=== PATIENT | male | born 1990 | race Caucasian/White ===

== ENCOUNTER 2017-12-04 12:12 | Emergency (ER) | payer OTHER ==
[~2017-12-04] VITALS: Ht 180.3 cm; Wt 72.6 kg
[~2017-12-04 12:12] MED LIST: ALBU90I INH; ALBU90OI6 INH; ALPR.25 PO; ALPR.5 PO; AMOX500 PO; AMPDEX10 PO; ATEN25 PO; Advil200 M1 PO; Ativan1 MG PO; BENZ100A PO; BUSP10; BUSP10 PO; Bactrim 400-801 EACH; Bactrim Ds Tab1 EACH PO; CLON.2 PO; CLON.5; CLON1 PO; CODACE30 PO; CRUTCH3 USE; CRUTCH4 USE; CYCL10 PO; Colace100 MG PO; DIPH25 PO; DIPH50 PO; DIVA500EC PO; ESCI10; FAMO40 PO; GABA300 PO; GUAI600ER PO; HYDACE5 PO; HYDPAM25 PO; HYDR1TAB94; HYDR1TAB94 PO; HYDRA25 PO; IBUP400 PO; IBUP600 PO; IBUP800 PO; INDERAL XL80 MG PO; INDO25 PO; INDO50 PO; Inderal80 MG PO; KETO10 PO; LITH300C PO; LITH300ER PO; LORA1 PO; LORA2; LORA2 PO; MAGCIT300 PO; NAPR500; NAPR500 PO; NAPR550 PO; Naprosyn500 MG PO; Norco 5-325 Ta1 EACH PO; OMEPRAZOLE MAGN20 MG PO; OXYACE5T PO; OXYC5; OXYC5 PO; PANT40 PO; PARO20 PO; PENVK500 PO; PERM5TC TOP; POTCHL20ER PO; PRED20 PO; PROC10 PO; PROM25 PO; PROP10 PO; PROP80ER PO; PSEU120ER PO; Pepcid40 MG PO; RANI150 PO; RISP2 PO; RXCYCL10 PO; RXHYDACE PO; RXIBUP800 PO; RXLORA1 PO; RXNAPNA550 PO; RXTRAM50 PO; SUCR1 PO; TEMA15 PO; TOBR.3OPSO OP; TRAM50 PO; TRAZ50 PO; Ultram50 MG PO; VICODIN; Vistaril25 MG PO; [UNRECOGNIZED DRUG - REMARK]; [UNRECOGNIZED DRUG - REMARK] PO
[2017-12-04] MEDS ORDERED: Amoxicillin500 MG PO (12:46)
[2017-12-04] MEDS ORDERED: PROM25 PO (12:46)
[2017-12-04] MEDS ORDERED: TYLECOD3 PO (12:46)
[2018-03-30] MEDS ORDERED: SUBOXONE 8 MG-1 EACH (21:06)
[2018-03-30] MEDS ORDERED: HYDHCL25 (21:07)
[2018-03-30] MEDS ORDERED: PROM25 (21:07)
[2018-03-30] MEDS ORDERED: CLON.1 (21:08)
[2018-03-30] MEDS ORDERED: Desyrel50 MG (21:08)
[2018-04-17] MEDS ORDERED: OXYM.05NI (22:50)
[2018-04-17] MEDS ORDERED: IBUP600 PO (22:50)
[2018-10-05] MEDS ORDERED: Inderal80 MG PO (20:56)
[2018-10-05] MEDS ORDERED: Naprosyn500 MG PO (21:31)
[2018-10-05] MEDS ORDERED: LIDO700A20 TOP (21:31)
== END 2017-12-04 12:50 | disposition home or self-care (01) ==
LOC: ER 12:12
DX: G89.18 Other acute postprocedural pain (principal); K08.89 Other specified disorders of teeth and supporting structures; F31.9 Bipolar disorder, unspecified; Z88.6 Allergy status to analgesic agent; Z79.899 Other long term (current) drug therapy; Z79.2 Long term (current) use of antibiotics; Z87.891 Personal history of nicotine dependence
CPT/HCPCS: 99283

== ENCOUNTER 2017-12-31 12:36 | Emergency (ER) | payer OTHER ==
[~2017-12-31] VITALS: Ht 177.8 cm; Wt 74.8 kg
[~2017-12-31 12:36] MED LIST changes: +Amoxicillin500 MG PO; +TYLECOD3 PO
[2017-12-31 13:20] LABS: BASOPHILS ABSOLUTE AUTO 0.04 K/mm3 (0.00-0.23); BASOPHILS PERCENT AUTO 1 % (0-2); EOSINOPHILS ABSOLUTE AUTO 0.16 K/mm3 (0.00-0.68); EOSINOPHILS PERCENT AUTO 3 % (0-6); Hematocrit 46.1 % (37.0-53.0); Hemoglobin 15.9 g/dL (13.5-17.5); IMMATURE GRAN ABSOLUTE AUTO 0.01 K/mm3 (0.00-0.10); IMMATURE GRAN PERCENT AUTO 0 % (0-1); LYMPHOCYTES ABSOLUTE AUTO 2.39 K/mm3 (0.84-5.20); LYMPHOCYTES PERCENT AUTO 44 % (21-46); MONOCYTES ABSOLUTE AUTO 0.47 K/mm3 (0.16-1.47); MONOCYTES PERCENT AUTO 9 % (4-13); Mean Corpuscular HGB 31.9 pg (26.0-34.0); Mean Corpuscular HGB Conc 34.5 g/dL (31.5-36.5); Mean Corpuscular Volume 92 fL (80-100); Mean Platelet Volume 10.2 fL (9.1-12.4); NEUTROPHILS PERCENT AUTO 44 % (41-73); Platelet Count 261 K/mm3 (150-400); RDW Coefficient Variation 13.1 % (11.7-14.2); RDW Standard Deviation 44.6 fL (35.1-46.3); Red Blood Cell Count 4.99 M/mm3 (4.30-5.90); White Blood Cell Count 5.47 K/mm3 (4.00-11.30)
[2018-03-30] MEDS ORDERED: SUBOXONE 8 MG-1 EACH (21:06)
[2018-03-30] MEDS ORDERED: HYDHCL25 (21:07)
[2018-03-30] MEDS ORDERED: PROM25 (21:07)
[2018-03-30] MEDS ORDERED: Desyrel50 MG (21:08)
[2018-03-30] MEDS ORDERED: CLON.1 (21:08)
[2018-04-17] MEDS ORDERED: OXYM.05NI (22:50)
[2018-04-17] MEDS ORDERED: IBUP600 PO (22:50)
[2018-10-05] MEDS ORDERED: Inderal80 MG PO (20:56)
[2018-10-05] MEDS ORDERED: Naprosyn500 MG PO (21:31)
[2018-10-05] MEDS ORDERED: LIDO700A20 TOP (21:31)
== END 2017-12-31 14:05 | disposition home or self-care (01) ==
LOC: ER 12:36
PROVIDERS: Emergency Medicine
DX: R07.9 Chest pain, unspecified (principal); F31.9 Bipolar disorder, unspecified; F41.9 Anxiety disorder, unspecified
CPT/HCPCS: 71046; 84484; 85025; 93005; 93010; 99283

== ENCOUNTER 2018-01-19 21:24 | Emergency (ER) | payer OTHER ==
[~2018-01-19] VITALS: Ht 177.8 cm; Wt 75.8 kg
[2018-01-19] MEDS ORDERED: Vistaril25 MG PO (23:44)
[2018-01-20 00:55] LABS: Valproic Acid 41.7 ug/mL (50.0-100.0)
[2018-03-30] MEDS ORDERED: SUBOXONE 8 MG-1 EACH (21:06)
[2018-03-30] MEDS ORDERED: HYDHCL25 (21:07)
[2018-03-30] MEDS ORDERED: PROM25 (21:07)
[2018-03-30] MEDS ORDERED: CLON.1 (21:08)
[2018-03-30] MEDS ORDERED: Desyrel50 MG (21:08)
[2018-04-17] MEDS ORDERED: OXYM.05NI (22:50)
[2018-04-17] MEDS ORDERED: IBUP600 PO (22:50)
[2018-10-05] MEDS ORDERED: Inderal80 MG PO (20:56)
[2018-10-05] MEDS ORDERED: Naprosyn500 MG PO (21:31)
[2018-10-05] MEDS ORDERED: LIDO700A20 TOP (21:31)
== END 2018-01-20 00:35 | disposition home or self-care (01) ==
LOC: ER 21:24
PROVIDERS: Emergency Medicine
DX: F31.9 Bipolar disorder, unspecified (principal); F41.9 Anxiety disorder, unspecified; Z87.891 Personal history of nicotine dependence; Z88.8 Allergy status to other drugs, medicaments and biological substances; Z79.899 Other long term (current) drug therapy
CPT/HCPCS: 80164; 99283; Q0177

== ENCOUNTER 2018-03-06 18:38 | Emergency (ER) | payer OTHER ==
[~2018-03-06] VITALS: Ht 177.8 cm; Wt 74.8 kg
[2018-03-06] MEDS ORDERED: DIVA500EC PO (20:45)
== END 2018-03-06 20:50 | disposition home or self-care (01) ==
LOC: ER 18:38
DX: Z76.0 Encounter for issue of repeat prescription (principal); F31.9 Bipolar disorder, unspecified; F41.9 Anxiety disorder, unspecified; Z88.8 Allergy status to other drugs, medicaments and biological substances; Z79.899 Other long term (current) drug therapy; Z87.891 Personal history of nicotine dependence
CPT/HCPCS: 99283

== ENCOUNTER 2018-03-20 16:03 | Emergency (ER) | payer OTHER ==
[~2018-03-20] VITALS: Ht 177.8 cm; Wt 74.8 kg
[2018-03-20] MEDS ORDERED: Augmentin 875-1 EACH PO (16:56)
== END 2018-03-20 17:10 | disposition home or self-care (01) ==
LOC: ER 16:03
DX: S81.851A Open bite, right lower leg, initial encounter (principal); W54.0XXA Bitten by dog, initial encounter; Z88.8 Allergy status to other drugs, medicaments and biological substances; Z79.899 Other long term (current) drug therapy; Z79.2 Long term (current) use of antibiotics; F41.9 Anxiety disorder, unspecified; F31.9 Bipolar disorder, unspecified; F43.10 Post-traumatic stress disorder, unspecified; Z87.891 Personal history of nicotine dependence
CPT/HCPCS: 90471; 90714; 99282

== ENCOUNTER 2018-04-02 13:00 | Emergency (ER) | payer OTHER ==
[~2018-04-02] VITALS: Ht 177.8 cm; Wt 74.8 kg
[~2018-04-02 13:00] MED LIST changes: +Augmentin 875-1 EACH PO; +CLON.1; +Desyrel50 MG; +HYDHCL25; +PROM25; +SUBOXONE 8 MG-1 EACH
== END 2018-04-02 14:24 ==
LOC: ER 13:00
DX: R07.89 Other chest pain (principal); R06.00 Dyspnea, unspecified; T40.4X5A Adverse effect of other synthetic narcotics, initial encounter; F11.23 Opioid dependence with withdrawal; F41.9 Anxiety disorder, unspecified; F31.9 Bipolar disorder, unspecified; Z88.8 Allergy status to other drugs, medicaments and biological substances; Z79.899 Other long term (current) drug therapy; Z87.891 Personal history of nicotine dependence

== ENCOUNTER 2018-04-06 14:43 | Emergency (ER) | payer OTHER ==
[~2018-04-06] VITALS: Ht 177.8 cm; Wt 74.8 kg
[2018-04-06] MEDS ORDERED: METH10 PO (15:04)
== END 2018-04-06 16:42 | disposition home or self-care (01) ==
LOC: ER 14:43
DX: F11.988 Opioid use, unspecified with other opioid-induced disorder (principal); F31.9 Bipolar disorder, unspecified; Z87.891 Personal history of nicotine dependence; Z88.8 Allergy status to other drugs, medicaments and biological substances; Z79.899 Other long term (current) drug therapy
CPT/HCPCS: 99283

== ENCOUNTER 2018-04-17 20:20 | Emergency (ER) | END 2018-04-17 23:25 | disposition home or self-care (01) ==

== ENCOUNTER 2019-01-06 00:31 | Emergency (ER) | payer OTHER ==
[~2019-01-06] VITALS: Ht 177.8 cm; Wt 77.1 kg
[~2019-01-06 00:31] MED LIST changes: +LIDO700A20 TOP; +METH10 PO; +OXYM.05NI
[2019-01-06 01:55] LABS: Alanine Aminotransfer (ALT/SGP 36 U/L (12-78); Albumin, Blood 4.2 g/dL (3.4-5.0); Albumin/Globulin Ratio 1.2 (0.8-1.8); Alk Phos 56 U/L (50-136); Anion Gap 6 mmol/L (6-16); Aspartate Aminotrans (AST/SGOT 28 U/L (12-37); Bilirubin, Total 0.3 mg/dL (0.1-1.0); Blood Urea Nitrogen 12 mg/dL (8-24); Bun/Creatinine Ratio 12.6 (12.0-20.0); CO2, Blood 30 mmol/L (21-32); Calcium, Blood 9.1 mg/dL (8.5-10.1); Chloride, Blood 106 mmol/L (98-108); Creatinine, Blood 0.96 mg/dL (0.60-1.20); Globulin, Blood 3.6 g/dL (2.2-4.0); Glomerular Filtration Rate >60 (60-); Glucose, Blood 90 mg/dL (70-99); Potassium, Blood 4.6 mmol/L (3.5-5.5); Sodium, Blood 142 mmol/L (136-145); Total Protein, Blood 7.8 g/dL (6.4-8.2)
[2019-01-06 01:57] LABS: BASOPHILS ABSOLUTE AUTO 0.05 K/mm3 (0.00-0.23); BASOPHILS PERCENT AUTO 1 % (0-2); EOSINOPHILS ABSOLUTE AUTO 0.35 K/mm3 (0.00-0.68); EOSINOPHILS PERCENT AUTO 5 % (0-6); Hematocrit 43.4 % (37.0-53.0); Hemoglobin 15.1 g/dL (13.5-17.5); IMMATURE GRAN ABSOLUTE AUTO 0.02 K/mm3 (0.00-0.10); IMMATURE GRAN PERCENT AUTO 0 % (0-1); LYMPHOCYTES ABSOLUTE AUTO 3.05 K/mm3 (0.84-5.20); LYMPHOCYTES PERCENT AUTO 44 % (21-46); MONOCYTES ABSOLUTE AUTO 0.66 K/mm3 (0.16-1.47); MONOCYTES PERCENT AUTO 10 % (4-13); Mean Corpuscular HGB 31.6 pg (26.0-34.0); Mean Corpuscular HGB Conc 34.8 g/dL (31.5-36.5); Mean Corpuscular Volume 91 fL (80-100); Mean Platelet Volume 10.7 fL (9.1-12.4); NEUTROPHILS ABSOLUTE AUTO 2.82 K/mm3 (1.96-9.15); NEUTROPHILS PERCENT AUTO 41 % (41-73); Platelet Count 242 K/mm3 (150-400); RDW Coefficient Variation 12.7 % (11.7-14.2); Red Blood Cell Count 4.78 M/mm3 (4.30-5.90); White Blood Cell Count 6.95 K/mm3 (4.00-11.30)
== END 2019-01-06 02:20 | disposition home or self-care (01) ==
LOC: ER 00:31
PROVIDERS: Emergency Medicine
DX: K29.70 Gastritis, unspecified, without bleeding (principal); Z88.8 Allergy status to other drugs, medicaments and biological substances; Z79.899 Other long term (current) drug therapy; F41.9 Anxiety disorder, unspecified; F31.9 Bipolar disorder, unspecified; F43.10 Post-traumatic stress disorder, unspecified; Z87.891 Personal history of nicotine dependence
CPT/HCPCS: 36415; 80053; 83690; 85025; 99283

== ENCOUNTER 2019-01-25 21:20 | Emergency (ER) | payer OTHER | END 2019-01-25 23:04 | disposition left against medical advice (07) | LOC: ER 21:20 | DX: Z53.21 Procedure and treatment not carried out due to patient leaving prior to being seen by health care provider (principal) ==

== ENCOUNTER 2019-03-11 18:29 | Emergency (ER) | payer OTHER ==
[~2019-03-11] VITALS: Ht 177.8 cm; Wt 74.8 kg
[2019-03-11 19:21] LABS: BASOPHILS ABSOLUTE AUTO 0.03 K/mm3 (0.00-0.23); BASOPHILS PERCENT AUTO 0 % (0-2); EOSINOPHILS ABSOLUTE AUTO 0.29 K/mm3 (0.00-0.68); EOSINOPHILS PERCENT AUTO 4 % (0-6); Hematocrit 43.7 % (37.0-53.0); Hemoglobin 15.1 g/dL (13.5-17.5); IMMATURE GRAN ABSOLUTE AUTO 0.02 K/mm3 (0.00-0.10); IMMATURE GRAN PERCENT AUTO 0 % (0-1); LYMPHOCYTES ABSOLUTE AUTO 3.33 K/mm3 (0.84-5.20); LYMPHOCYTES PERCENT AUTO 47 % (21-46); MONOCYTES ABSOLUTE AUTO 0.72 K/mm3 (0.16-1.47); MONOCYTES PERCENT AUTO 10 % (4-13); Mean Corpuscular HGB 31.9 pg (26.0-34.0); Mean Corpuscular HGB Conc 34.6 g/dL (31.5-36.5); Mean Corpuscular Volume 92 fL (80-100); Mean Platelet Volume 10.6 fL (9.1-12.4); NEUTROPHILS ABSOLUTE AUTO 2.69 K/mm3 (1.96-9.15); NEUTROPHILS PERCENT AUTO 38 % (41-73); Platelet Count 231 K/mm3 (150-400); RDW Coefficient Variation 13.1 % (11.7-14.2); RDW Standard Deviation 44.4 fL (35.1-46.3); Red Blood Cell Count 4.74 M/mm3 (4.30-5.90); White Blood Cell Count 7.08 K/mm3 (4.00-11.30)
[2019-03-11] MEDS ORDERED: Zantac150 MG PO (19:39)
[2019-03-11 19:42] LABS: Alanine Aminotransfer (ALT/SGP 51 U/L (12-78); Albumin, Blood 4.2 g/dL (3.4-5.0); Albumin/Globulin Ratio 1.1 (0.8-1.8); Alk Phos 59 U/L (50-136); Anion Gap 3 mmol/L (6-16); Aspartate Aminotrans (AST/SGOT 30 U/L (12-37); Bilirubin, Total 0.4 mg/dL (0.1-1.0); Blood Urea Nitrogen 14 mg/dL (8-24); Bun/Creatinine Ratio 13.6 (12.0-20.0); CO2, Blood 31 mmol/L (21-32); Calcium, Blood 8.9 mg/dL (8.5-10.1); Chloride, Blood 106 mmol/L (98-108); Creatinine, Blood 1.03 mg/dL (0.60-1.20); Globulin, Blood 3.7 g/dL (2.2-4.0); Glomerular Filtration Rate >60 (60-); Glucose, Blood 91 mg/dL (70-99); Potassium, Blood 4.1 mmol/L (3.5-5.5); Sodium, Blood 140 mmol/L (136-145); Total Protein, Blood 7.9 g/dL (6.4-8.2)
== END 2019-03-11 19:53 | disposition home or self-care (01) ==
LOC: ER 18:29
PROVIDERS: Physician Assistant
DX: K29.70 Gastritis, unspecified, without bleeding (principal); F32.9 Major depressive disorder, single episode, unspecified; F41.9 Anxiety disorder, unspecified; F31.9 Bipolar disorder, unspecified; Z79.899 Other long term (current) drug therapy
CPT/HCPCS: 36415; 80053; 82272; 85025; 99283

== ENCOUNTER 2019-03-19 23:39 | Emergency (ER) | payer OTHER ==
[~2019-03-19] VITALS: Ht 177.8 cm; Wt 74.8 kg
[~2019-03-19 23:39] MED LIST changes: +Zantac150 MG PO
[2019-03-20] MEDS ORDERED: DIVA500EC PO (00:04)
== END 2019-03-20 00:16 | disposition home or self-care (01) ==
LOC: ER 23:39
DX: Z76.0 Encounter for issue of repeat prescription (principal); F31.9 Bipolar disorder, unspecified; F43.10 Post-traumatic stress disorder, unspecified; I47.1 Supraventricular tachycardia; F41.0 Panic disorder [episodic paroxysmal anxiety]; Z88.8 Allergy status to other drugs, medicaments and biological substances
CPT/HCPCS: 99281

== ENCOUNTER 2019-04-14 22:29 | Emergency (ER) | payer OTHER ==
[~2019-04-14] VITALS: Ht 177.8 cm; Wt 72.6 kg
[2019-04-14 22:43] LABS: Source, Urine Clean Catch
[2019-04-14 22:48] LABS: Blood, Urine 1+ (Neg); Glucose Qualitative, Urine Neg (Neg); Ketones, Urine 2+ (Neg); Leukocyte Esterase, Urine 3+ (Neg); Nitrite, Urine Neg (Neg); Protein, Urine 2+ (Neg); Urobilinogen, Urine 2+ (Normal); pH, Urine 6.5 (5.0-8.0)
[2019-04-14 22:57] LABS: Appearance, Urine Hazy (Clear); Bilirubin, Urine 1+ (Neg); Color, Urine Yellow (P-Yellow)
[2019-04-14 22:58] LABS: Amorphous Light (0-Heavy); Bacteria Few /hpf; Mucus Mod (0-Heavy); Red Blood Cells, Urine 0-2 /hpf (0-2); Squamous Epithelial Cells Not Seen /hpf (Few); White Blood Cells, Urine TNTC /hpf (0-5)
[2019-04-14] MEDS ORDERED: CEPH500 PO (23:26)
[2019-04-14] MEDS ORDERED: Pyridium100 MG PO (23:26)
== END 2019-04-14 23:44 | disposition home or self-care (01) ==
LOC: ER 22:29
PROVIDERS: Emergency Medicine
DX: N39.0 Urinary tract infection, site not specified (principal); Z88.8 Allergy status to other drugs, medicaments and biological substances; Z79.899 Other long term (current) drug therapy; F31.9 Bipolar disorder, unspecified; F43.10 Post-traumatic stress disorder, unspecified; Z87.891 Personal history of nicotine dependence
CPT/HCPCS: 81001; 87086; 99283

== ENCOUNTER 2019-06-24 10:56 | Day surgery (SDC) | payer OTHER ==
[~2019-06-24] VITALS: Ht 177.8 cm; Wt 72.2 kg
[~2019-06-24 10:56] MED LIST changes: +CEPH500 PO; +Pyridium100 MG PO
--- NOTE | 2019-06-24 13:48 | NUR ---
06/24/19 5201 Libby Andrade PT STATED PAIN WAS TOLERABLE AND "FEELING MUCH BETTER." PT STATED HE WANTED TO GO HOME. RN WENT OVER DISCHARGE INSTRUCTIONS WITH PT AND PT'S FAMILY. PT DRESSED INDEPENDANTLY. PT WALKED OUT TO MOM'S CAR VIA STAND BY ASSIST. PT SENT HOME WITH DISCHARGE INSTRUCTIONS AND PERSONAL BELONGINGS.
== END 2019-06-24 13:45 | disposition home or self-care (01) ==
LOC: ORSCSDS 10:56
PROVIDERS: Internal Medicine Gastroenterology
PROC: 0DB68ZX Excision of Stomach, Via Natural or Artificial Opening Endoscopic, Diagnostic (ICD-10-PCS; principal; 2019-06-24 12:30)
PROC: 0DBE8ZX Excision of Large Intestine, Via Natural or Artificial Opening Endoscopic, Diagnostic (ICD-10-PCS; principal; 2019-06-24 12:30)
PROC: 0DB98ZX Excision of Duodenum, Via Natural or Artificial Opening Endoscopic, Diagnostic (ICD-10-PCS; principal; 2019-06-24 12:30)
DX: K62.5 Hemorrhage of anus and rectum (principal); R10.9 Unspecified abdominal pain; K20.9 Esophagitis, unspecified; K44.9 Diaphragmatic hernia without obstruction or gangrene; R63.4 Abnormal weight loss; K57.30 Diverticulosis of large intestine without perforation or abscess without bleeding; K64.1 Second degree hemorrhoids; Z79.899 Other long term (current) drug therapy
CPT/HCPCS: 88305; 88342; J2250; J2704; J7120

== ENCOUNTER 2019-07-02 21:11 | Emergency (ER) | payer OTHER ==
[~2019-07-02] VITALS: Ht 177.8 cm; Wt 72.6 kg
== END 2019-07-02 23:11 | disposition home or self-care (01) ==
LOC: ER 21:11
DX: F41.9 Anxiety disorder, unspecified (principal); Z88.8 Allergy status to other drugs, medicaments and biological substances; Z79.899 Other long term (current) drug therapy; F43.10 Post-traumatic stress disorder, unspecified; F31.9 Bipolar disorder, unspecified; Z87.891 Personal history of nicotine dependence
CPT/HCPCS: 93005; 93010; 99283-25

== ENCOUNTER 2019-07-04 18:16 | Emergency (ER) | payer OTHER ==
[~2019-07-04] VITALS: Ht 177.8 cm; Wt 72.6 kg
== END 2019-07-04 20:55 | disposition home or self-care (01) ==
LOC: ER 18:16
DX: F41.0 Panic disorder [episodic paroxysmal anxiety] (principal); G89.29 Other chronic pain; F31.9 Bipolar disorder, unspecified; F43.10 Post-traumatic stress disorder, unspecified; I47.1 Supraventricular tachycardia; Z88.8 Allergy status to other drugs, medicaments and biological substances; Z87.891 Personal history of nicotine dependence
CPT/HCPCS: 93005; 93010; 99283-25

== ENCOUNTER 2019-07-10 18:04 | Emergency (ER) | payer OTHER ==
[~2019-07-10] VITALS: Ht 177.8 cm; Wt 72.6 kg
[2019-07-10] MEDS ORDERED: SUBOXONE 8 MG-1 EACH SL (19:07)
== END 2019-07-10 19:26 | disposition home or self-care (01) ==
LOC: ER 18:04
DX: F41.0 Panic disorder [episodic paroxysmal anxiety] (principal); Z88.8 Allergy status to other drugs, medicaments and biological substances; Z79.899 Other long term (current) drug therapy; F31.9 Bipolar disorder, unspecified; F43.10 Post-traumatic stress disorder, unspecified; Z87.891 Personal history of nicotine dependence
CPT/HCPCS: 93005; 93010; 99283-25

== ENCOUNTER 2019-07-13 10:55 | Emergency (ER) | payer OTHER ==
[~2019-07-13] VITALS: Ht 177.8 cm; Wt 74.8 kg
[~2019-07-13 10:55] MED LIST changes: +SUBOXONE 8 MG-1 EACH SL
[2019-07-13 11:39] LABS: Source, Urine Clean Catch
[2019-07-13 11:42] LABS: Appearance, Urine Clear (Clear); Bilirubin, Urine Neg (Neg); Blood, Urine Neg (Neg); Color, Urine Yellow (P-Yellow); Glucose Qualitative, Urine Neg (Neg); Ketones, Urine Neg (Neg); Leukocyte Esterase, Urine 1+ (Neg); Nitrite, Urine Neg (Neg); Protein, Urine Neg (Neg); Specific Gravity, Urine 1.005 (1.003-1.022); Urobilinogen, Urine NORM (Normal)
[2019-07-13 12:12] LABS: Bacteria Rare /hpf; Red Blood Cells, Urine 0-2 /hpf (0-2); Squamous Epithelial Cells Rare /hpf (Few); White Blood Cells, Urine 0-2 /hpf (0-5)
== END 2019-07-13 12:58 | disposition home or self-care (01) ==
LOC: ER 10:55
PROVIDERS: Emergency Medicine
DX: K59.00 Constipation, unspecified (principal); Z88.8 Allergy status to other drugs, medicaments and biological substances; Z79.899 Other long term (current) drug therapy; F41.9 Anxiety disorder, unspecified; F31.9 Bipolar disorder, unspecified; F17.210 Nicotine dependence, cigarettes, uncomplicated
CPT/HCPCS: 74176; 81001; 87086; 99284-25

== ENCOUNTER 2019-08-09 11:28 | Emergency (ER) | payer OTHER ==
[~2019-08-09] VITALS: Ht 180.3 cm; Wt 77.1 kg
[2019-08-09 12:08] LABS: BASOPHILS ABSOLUTE AUTO 0.02 K/mm3 (0.00-0.23); BASOPHILS PERCENT AUTO 0 % (0-2); EOSINOPHILS ABSOLUTE AUTO 0.28 K/mm3 (0.00-0.68); EOSINOPHILS PERCENT AUTO 4 % (0-6); Hematocrit 41.9 % (37.0-53.0); Hemoglobin 14.5 g/dL (13.5-17.5); IMMATURE GRAN ABSOLUTE AUTO 0.02 K/mm3 (0.00-0.10); IMMATURE GRAN PERCENT AUTO 0 % (0-1); LYMPHOCYTES PERCENT AUTO 40 % (21-46); MONOCYTES ABSOLUTE AUTO 0.62 K/mm3 (0.16-1.47); MONOCYTES PERCENT AUTO 10 % (4-13); Mean Corpuscular HGB 31.5 pg (26.0-34.0); Mean Corpuscular HGB Conc 34.6 g/dL (31.5-36.5); Mean Corpuscular Volume 91 fL (80-100); Mean Platelet Volume 10.5 fL (9.1-12.4); NEUTROPHILS ABSOLUTE AUTO 2.89 K/mm3 (1.96-9.15); NEUTROPHILS PERCENT AUTO 45 % (41-73); Platelet Count 248 K/mm3 (150-400); RDW Standard Deviation 42.5 fL (35.1-46.3); Red Blood Cell Count 4.61 M/mm3 (4.30-5.90); White Blood Cell Count 6.43 K/mm3 (4.00-11.30)
[2019-08-09 12:27] LABS: Alanine Aminotransfer (ALT/SGP 57 U/L (12-78); Albumin, Blood 3.8 g/dL (3.4-5.0); Alk Phos 66 U/L (50-136); Anion Gap 4 mmol/L (6-16); Aspartate Aminotrans (AST/SGOT 36 U/L (12-37); Bilirubin, Total 0.3 mg/dL (0.1-1.0); Blood Urea Nitrogen 11 mg/dL (8-24); Bun/Creatinine Ratio 12.9 (12.0-20.0); CO2, Blood 27 mmol/L (21-32); Chloride, Blood 108 mmol/L (98-108); Creatinine, Blood 0.86 mg/dL (0.60-1.20); Globulin, Blood 3.7 g/dL (2.2-4.0); Glomerular Filtration Rate >60 (60-); Glucose, Blood 92 mg/dL (70-99); Sodium, Blood 139 mmol/L (136-145); Total Protein, Blood 7.5 g/dL (6.4-8.2)
== END 2019-08-09 12:44 | disposition home or self-care (01) ==
LOC: ER 11:28
PROVIDERS: Emergency Medicine
DX: I95.9 Hypotension, unspecified (principal); Z88.8 Allergy status to other drugs, medicaments and biological substances; Z79.899 Other long term (current) drug therapy; F41.9 Anxiety disorder, unspecified; F31.9 Bipolar disorder, unspecified; F43.10 Post-traumatic stress disorder, unspecified; Z87.891 Personal history of nicotine dependence
CPT/HCPCS: 36415; 80053; 85025; 99284

== ENCOUNTER → 2019-09-17 | Outpatient (CLI) | payer OTHER | END | disposition home or self-care (01) | LOC: LAB SHORT 18:16 → LAB 18:16 | DX: N39.0 Urinary tract infection, site not specified (principal) | CPT/HCPCS: 87086 ==

== ENCOUNTER 2019-09-21 13:38 | Emergency (ER) | payer OTHER ==
[~2019-09-21] VITALS: Ht 177.8 cm; Wt 79.4 kg
[2019-09-21] MEDS ORDERED: DIVA500EC PO (13:49)
== END 2019-09-21 13:55 | disposition home or self-care (01) ==
LOC: ER 13:38
DX: F31.9 Bipolar disorder, unspecified (principal); F41.9 Anxiety disorder, unspecified; F43.10 Post-traumatic stress disorder, unspecified; Z87.891 Personal history of nicotine dependence; Z88.8 Allergy status to other drugs, medicaments and biological substances; Z79.899 Other long term (current) drug therapy

== ENCOUNTER 2020-01-02 23:26 | Emergency (ER) | payer OTHER ==
[~2020-01-02] VITALS: Ht 177.8 cm; Wt 77.1 kg
== END 2020-01-03 02:30 | disposition left against medical advice (07) ==
LOC: ER 23:26
DX: Z53.21 Procedure and treatment not carried out due to patient leaving prior to being seen by health care provider (principal)
CPT/HCPCS: 93005; 93010

== ENCOUNTER 2020-01-20 16:28 | Emergency (ER) | payer OTHER ==
[~2020-01-20] VITALS: Ht 177.8 cm; Wt 74.8 kg
[2020-01-20 17:58] LABS: BASOPHILS ABSOLUTE AUTO 0.03 K/mm3 (0.00-0.23); BASOPHILS PERCENT AUTO 1 % (0-2); EOSINOPHILS ABSOLUTE AUTO 0.14 K/mm3 (0.00-0.68); EOSINOPHILS PERCENT AUTO 2 % (0-6); Hematocrit 42.8 % (37.0-53.0); Hemoglobin 15.1 g/dL (13.5-17.5); IMMATURE GRAN ABSOLUTE AUTO 0.02 K/mm3 (0.00-0.10); IMMATURE GRAN PERCENT AUTO 0 % (0-1); LYMPHOCYTES ABSOLUTE AUTO 2.46 K/mm3 (0.84-5.20); LYMPHOCYTES PERCENT AUTO 40 % (21-46); MONOCYTES ABSOLUTE AUTO 0.56 K/mm3 (0.16-1.47); MONOCYTES PERCENT AUTO 9 % (4-13); Mean Corpuscular HGB 31.3 pg (26.0-34.0); Mean Corpuscular HGB Conc 35.3 g/dL (31.5-36.5); Mean Corpuscular Volume 89 fL (80-100); Mean Platelet Volume 10.8 fL (9.1-12.4); NEUTROPHILS PERCENT AUTO 48 % (41-73); Platelet Count 243 K/mm3 (150-400); RDW Coefficient Variation 13.2 % (11.7-14.2); RDW Standard Deviation 42.9 fL (35.1-46.3); Red Blood Cell Count 4.82 M/mm3 (4.30-5.90); White Blood Cell Count 6.21 K/mm3 (4.00-11.30)
[2020-01-20 18:19] LABS: Alanine Aminotransfer (ALT/SGP 30 U/L (12-78); Albumin, Blood 4.3 g/dL (3.4-5.0); Albumin/Globulin Ratio 1.1 (0.8-1.8); Alk Phos 71 U/L (50-136); Anion Gap 2 mmol/L (6-16); Aspartate Aminotrans (AST/SGOT 19 U/L (12-37); Bilirubin, Total 0.3 mg/dL (0.1-1.0); Blood Urea Nitrogen 9 mg/dL (8-24); Bun/Creatinine Ratio 11.6 (12.0-20.0); CO2, Blood 28 mmol/L (21-32); Calcium, Blood 9.3 mg/dL (8.5-10.1); Chloride, Blood 109 mmol/L (98-108); Creatinine, Blood 0.78 mg/dL (0.60-1.20); Globulin, Blood 3.8 g/dL (2.2-4.0); Glomerular Filtration Rate >60 (60-); Glucose, Blood 106 mg/dL (70-99); Sodium, Blood 139 mmol/L (136-145); Total Protein, Blood 8.1 g/dL (6.4-8.2)
[2020-01-20] MEDS ORDERED: PROPRANOLOL HCL80 MG PO (20:23)
[2020-01-20] MEDS ORDERED: LORAZEPAM0.5 MG PO (20:23)
[2020-01-20] MEDS ORDERED: Divalproex Sod500 MG PO (20:23)
[2020-01-20] MEDS ORDERED: ONDA4ODT MM (20:26)
== END 2020-01-20 20:37 | disposition home or self-care (01) ==
LOC: ER 16:28
PROVIDERS: Physician Assistant
DX: F11.23 Opioid dependence with withdrawal (principal); F41.9 Anxiety disorder, unspecified; F31.9 Bipolar disorder, unspecified; F43.10 Post-traumatic stress disorder, unspecified; I47.1 Supraventricular tachycardia; Z79.899 Other long term (current) drug therapy
CPT/HCPCS: 36415; 80053; 85025; 93005; 93010; 99284-25

== ENCOUNTER 2020-01-24 01:36 | Emergency (ER) | payer OTHER ==
[~2020-01-24] VITALS: Ht 177.8 cm; Wt 74.4 kg
[~2020-01-24 01:36] MED LIST changes: +Divalproex Sod500 MG PO; +LORAZEPAM0.5 MG PO; +ONDA4ODT MM; +PROPRANOLOL HCL80 MG PO
[2020-01-24] MEDS ORDERED: BUPRENORPHINE HC2 MG SL (01:58)
[2020-01-24] MEDS ORDERED: HYDPAM50 PO (02:00)
[2020-01-24] MEDS ORDERED: CLON.1 PO (02:04)
[2020-01-24] MEDS ORDERED: METO25 PO (02:04)
[2020-01-24] MEDS ORDERED: PROM25 PO (02:05)
[2020-01-24] MEDS ORDERED: TRAZ50 PO (02:06)
[2020-01-24 02:14] LABS: BASOPHILS ABSOLUTE AUTO 0.04 K/mm3 (0.00-0.23); BASOPHILS PERCENT AUTO 1 % (0-2); EOSINOPHILS ABSOLUTE AUTO 0.31 K/mm3 (0.00-0.68); EOSINOPHILS PERCENT AUTO 4 % (0-6); Hemoglobin 13.9 g/dL (13.5-17.5); IMMATURE GRAN ABSOLUTE AUTO 0.02 K/mm3 (0.00-0.10); IMMATURE GRAN PERCENT AUTO 0 % (0-1); LYMPHOCYTES ABSOLUTE AUTO 4.16 K/mm3 (0.84-5.20); LYMPHOCYTES PERCENT AUTO 51 % (21-46); MONOCYTES ABSOLUTE AUTO 0.76 K/mm3 (0.16-1.47); MONOCYTES PERCENT AUTO 9 % (4-13); Mean Corpuscular HGB 31.7 pg (26.0-34.0); Mean Corpuscular HGB Conc 35.6 g/dL (31.5-36.5); Mean Corpuscular Volume 89 fL (80-100); Mean Platelet Volume 10.4 fL (9.1-12.4); NEUTROPHILS ABSOLUTE AUTO 2.81 K/mm3 (1.96-9.15); NEUTROPHILS PERCENT AUTO 35 % (41-73); Platelet Count 224 K/mm3 (150-400); RDW Standard Deviation 42.3 fL (35.1-46.3); Red Blood Cell Count 4.39 M/mm3 (4.30-5.90)
[2020-01-24 02:27] LABS: Alanine Aminotransfer (ALT/SGP 28 U/L (12-78); Albumin, Blood 3.7 g/dL (3.4-5.0); Albumin/Globulin Ratio 1.1 (0.8-1.8); Alk Phos 60 U/L (50-136); Anion Gap 5 mmol/L (6-16); Aspartate Aminotrans (AST/SGOT 16 U/L (12-37); Bilirubin, Total 0.3 mg/dL (0.1-1.0); Blood Urea Nitrogen 12 mg/dL (8-24); Bun/Creatinine Ratio 14.4 (12.0-20.0); CO2, Blood 29 mmol/L (21-32); Calcium, Blood 8.9 mg/dL (8.5-10.1); Chloride, Blood 106 mmol/L (98-108); Creatinine, Blood 0.83 mg/dL (0.60-1.20); Globulin, Blood 3.3 g/dL (2.2-4.0); Glomerular Filtration Rate >60 (60-); Glucose, Blood 91 mg/dL (70-99); Potassium, Blood 4.2 mmol/L (3.5-5.5); Sodium, Blood 140 mmol/L (136-145); Troponin I <0.015 ng/mL (0.000-0.040)
== END 2020-01-24 03:53 | disposition home or self-care (01) ==
LOC: ER 01:36
PROVIDERS: Emergency Medicine
DX: R07.9 Chest pain, unspecified (principal); F31.9 Bipolar disorder, unspecified; I47.1 Supraventricular tachycardia; Z87.891 Personal history of nicotine dependence
CPT/HCPCS: 36415; 71046; 80053; 84484; 85025; 93005; 93010; 99284-25

== ENCOUNTER 2020-01-31 18:48 | Emergency (ER) | payer OTHER ==
[~2020-01-31] VITALS: Ht 180.3 cm; Wt 74.8 kg
[~2020-01-31 18:48] MED LIST changes: +BUPRENORPHINE HC2 MG SL; +CLON.1 PO; +HYDPAM50 PO; +METO25 PO
[2020-01-31] MEDS ORDERED: Augmentin 875-1 EACH PO (19:34)
== END 2020-01-31 19:35 | disposition home or self-care (01) ==
LOC: ER 18:48
DX: K12.0 Recurrent oral aphthae (principal); F41.9 Anxiety disorder, unspecified; F31.9 Bipolar disorder, unspecified; F43.10 Post-traumatic stress disorder, unspecified; F41.0 Panic disorder [episodic paroxysmal anxiety]; I47.1 Supraventricular tachycardia; Z79.899 Other long term (current) drug therapy; Z87.891 Personal history of nicotine dependence
CPT/HCPCS: 99282

== ENCOUNTER 2020-02-12 15:35 | Emergency (ER) | payer OTHER ==
[~2020-02-12] VITALS: Ht 177.8 cm; Wt 72.6 kg
[2020-02-12] MEDS ORDERED: Depakote500 MG PO (16:41)
[2020-02-12] MEDS ORDERED: LORA.5 (16:41)
[2020-02-12] MEDS ORDERED: PROP80ER PO (16:42)
== END 2020-02-12 17:30 | disposition home or self-care (01) ==
LOC: ER 15:35
DX: J02.8 Acute pharyngitis due to other specified organisms (principal); F31.9 Bipolar disorder, unspecified; F41.9 Anxiety disorder, unspecified; M54.5 Low back pain; G89.29 Other chronic pain; F43.10 Post-traumatic stress disorder, unspecified; Z79.899 Other long term (current) drug therapy; Z87.891 Personal history of nicotine dependence
CPT/HCPCS: 71046; 87081; 87430; 99283-25

== ENCOUNTER 2020-05-22 05:03 | Emergency (ER) | payer OTHER ==
[~2020-05-22] VITALS: Ht 180.3 cm; Wt 77.1 kg
[~2020-05-22 05:03] MED LIST changes: +Depakote500 MG PO; +LORA.5
[2020-05-22] MEDS ORDERED: Cyclobenzaprine5 MG PO (05:11)
== END 2020-05-22 05:36 | disposition home or self-care (01) ==
LOC: ER 05:03
DX: M62.830 Muscle spasm of back (principal); F41.0 Panic disorder [episodic paroxysmal anxiety]; F43.10 Post-traumatic stress disorder, unspecified; Z79.899 Other long term (current) drug therapy
CPT/HCPCS: 96372; 99283-25; J1885

== ENCOUNTER 2020-08-27 18:07 | Emergency (ER) | payer OTHER ==
[~2020-08-27] VITALS: Ht 172.7 cm; Wt 81.7 kg
[~2020-08-27 18:07] MED LIST changes: +Cyclobenzaprine5 MG PO
[2020-08-27] MEDS ORDERED: ONDA4ODT MM (19:26)
[2020-08-27] MEDS ORDERED: Vistaril25 MG PO (19:26)
[2020-08-27] MEDS ORDERED: PROPRANOLOL HCL80 MG PO (19:44)
[2020-08-27] MEDS ORDERED: SUBOXONE 8 MG-1 EACH SL (19:45)
== END 2020-08-27 19:43 | disposition home or self-care (01) ==
LOC: ER 18:07
DX: F11.23 Opioid dependence with withdrawal (principal); F41.9 Anxiety disorder, unspecified; F31.9 Bipolar disorder, unspecified; F41.0 Panic disorder [episodic paroxysmal anxiety]; Z79.899 Other long term (current) drug therapy; Z87.891 Personal history of nicotine dependence
CPT/HCPCS: 93005; 93010; 99284-25; A9270-GY; Q0177

== ENCOUNTER 2020-09-25 01:18 | Emergency (ER) | payer OTHER ==
[~2020-09-25] VITALS: Ht 177.8 cm; Wt 77.1 kg
[2020-09-25] MEDS ORDERED: Vibramycin100 MG PO (02:21)
[2020-09-25] MEDS ORDERED: ONDA4ODT MM (20:29)
== END 2020-09-25 02:39 | disposition home or self-care (01) ==
LOC: ER 01:18
DX: L02.214 Cutaneous abscess of groin (principal); F41.9 Anxiety disorder, unspecified; F31.9 Bipolar disorder, unspecified; F43.10 Post-traumatic stress disorder, unspecified; F41.0 Panic disorder [episodic paroxysmal anxiety]; Z79.899 Other long term (current) drug therapy; Z87.891 Personal history of nicotine dependence
CPT/HCPCS: 10060; 99282-25

== ENCOUNTER 2020-09-25 14:11 | Emergency (ER) | payer OTHER ==
[~2020-09-25] VITALS: Ht 177.8 cm; Wt 77.1 kg
[~2020-09-25 14:11] MED LIST changes: +Vibramycin100 MG PO
[2020-09-25 14:45] LABS: BASOPHILS ABSOLUTE AUTO 0.05 K/mm3 (0.00-0.23); BASOPHILS PERCENT AUTO 1 % (0-2); EOSINOPHILS ABSOLUTE AUTO 0.25 K/mm3 (0.00-0.68); EOSINOPHILS PERCENT AUTO 4 % (0-6); Hematocrit 38.8 % (37.0-53.0); Hemoglobin 13.8 g/dL (13.5-17.5); IMMATURE GRAN ABSOLUTE AUTO 0.02 K/mm3 (0.00-0.10); IMMATURE GRAN PERCENT AUTO 0 % (0-1); LYMPHOCYTES ABSOLUTE AUTO 2.46 K/mm3 (0.84-5.20); LYMPHOCYTES PERCENT AUTO 36 % (21-46); MONOCYTES ABSOLUTE AUTO 0.62 K/mm3 (0.16-1.47); MONOCYTES PERCENT AUTO 9 % (4-13); Mean Corpuscular HGB 31.4 pg (26.0-34.0); Mean Corpuscular HGB Conc 35.6 g/dL (31.5-36.5); Mean Corpuscular Volume 88 fL (80-100); NEUTROPHILS ABSOLUTE AUTO 3.38 K/mm3 (1.96-9.15); NEUTROPHILS PERCENT AUTO 50 % (41-73); Platelet Count 218 K/mm3 (150-400); RDW Coefficient Variation 12.1 % (11.7-14.2); RDW Standard Deviation 39.7 fL (35.1-46.3); Red Blood Cell Count 4.39 M/mm3 (4.30-5.90); White Blood Cell Count 6.78 K/mm3 (4.00-11.30)
[2020-09-25 15:02] LABS: Alanine Aminotransfer (ALT/SGP 33 U/L (12-78); Albumin, Blood 3.9 g/dL (3.4-5.0); Albumin/Globulin Ratio 1.1 (0.8-1.8); Alk Phos 69 U/L (50-136); Anion Gap 5 mmol/L (6-16); Aspartate Aminotrans (AST/SGOT 26 U/L (12-37); Bilirubin, Total 0.4 mg/dL (0.1-1.0); Blood Urea Nitrogen 9 mg/dL (8-24); Bun/Creatinine Ratio 10.6 (12.0-20.0); CO2, Blood 30 mmol/L (21-32); Calcium, Blood 9.2 mg/dL (8.5-10.1); Chloride, Blood 105 mmol/L (98-108); Creatinine, Blood 0.85 mg/dL (0.60-1.20); Globulin, Blood 3.7 g/dL (2.2-4.0); Glomerular Filtration Rate >60 (60-); Glucose, Blood 90 mg/dL (70-99); Potassium, Blood 4.5 mmol/L (3.5-5.5); Sodium, Blood 140 mmol/L (136-145); Total Protein, Blood 7.6 g/dL (6.4-8.2)
[2020-09-25 15:08] LABS: Source, Urine Clean Catch
[2020-09-25 15:18] LABS: Appearance, Urine Clear (Clear); Bilirubin, Urine Neg (Neg); Blood, Urine 1+ (Neg); Color, Urine Yellow (P-Yellow); Glucose Qualitative, Urine Neg (Neg); Ketones, Urine Neg (Neg); Leukocyte Esterase, Urine Neg (Neg); Nitrite, Urine Neg (Neg); Protein, Urine Neg (Neg); Specific Gravity, Urine 1.005 (1.003-1.022); Urobilinogen, Urine NORM (Normal)
[2020-09-25 15:32] LABS: Bacteria Rare /hpf; Red Blood Cells, Urine Rare /hpf (0-2); Squamous Epithelial Cells Rare /hpf (Few); White Blood Cells, Urine Rare /hpf (0-5)
[2020-09-25] MEDS ORDERED: ONDA4ODT MM (20:29)
== END 2020-09-25 20:54 | disposition home or self-care (01) ==
LOC: ER 14:11
PROVIDERS: Physician Assistant
DX: L02.214 Cutaneous abscess of groin (principal); R11.2 Nausea with vomiting, unspecified; F41.9 Anxiety disorder, unspecified; F31.9 Bipolar disorder, unspecified; Z79.899 Other long term (current) drug therapy; Z87.891 Personal history of nicotine dependence
CPT/HCPCS: 74022; 80053; 81001; 83690; 85025; 93005; 93010; 96361; 96374; 99284-25; A9270-GY; J2405; J7030

== ENCOUNTER 2020-10-01 03:38 | Emergency (ER) | payer OTHER ==
[~2020-10-01] VITALS: Ht 177.8 cm; Wt 77.1 kg
[2020-10-01] MEDS ORDERED: Ativan1 MG (03:54)
[2020-10-01 03:55] LABS: Calcium, Ionized (POC) 1.22 mmol/L (1.10-1.46); Chloride (POC) 100 mmol/L (98-108); Creatinine (POC) 0.9 mg/dL (0.8-1.3); Glucose (ISTAT POC) 98 mg/dL (70-99); Hemoglobin (POC) 13.6 g/dL (13.5-17.5); Sodium (POC) 141 mmol/L (135-148); Total CO2 (POC) 28 mmol/L (21-32)
[2020-10-01] MEDS ORDERED: DOXE10 (03:55)
== END 2020-10-01 04:03 | disposition home or self-care (01) ==
LOC: ER 03:38
PROVIDERS: Emergency Medicine
DX: F41.9 Anxiety disorder, unspecified (principal); F31.9 Bipolar disorder, unspecified; F41.0 Panic disorder [episodic paroxysmal anxiety]; Z87.891 Personal history of nicotine dependence; Z79.899 Other long term (current) drug therapy
CPT/HCPCS: 80047; 85014; 99283

== ENCOUNTER 2020-10-11 12:47 | Emergency (ER) | payer OTHER ==
[~2020-10-11] VITALS: Ht 177.8 cm; Wt 77.1 kg
[~2020-10-11 12:47] MED LIST changes: +Ativan1 MG; +DOXE10
== END 2020-10-11 17:10 | disposition home or self-care (01) ==
LOC: ER 12:47
DX: R00.2 Palpitations (principal); F15.90 Other stimulant use, unspecified, uncomplicated; F41.9 Anxiety disorder, unspecified; F31.9 Bipolar disorder, unspecified; F41.0 Panic disorder [episodic paroxysmal anxiety]; F43.10 Post-traumatic stress disorder, unspecified; Z87.891 Personal history of nicotine dependence; Z79.899 Other long term (current) drug therapy
CPT/HCPCS: 93005; 93010; 99283-25

== ENCOUNTER 2020-10-29 15:37 | Emergency (ER) | payer OTHER ==
[~2020-10-29] VITALS: Ht 177.8 cm; Wt 72.6 kg
== END 2020-10-29 16:31 | disposition home or self-care (01) ==
LOC: ER 15:37
DX: F41.9 Anxiety disorder, unspecified (principal); F31.9 Bipolar disorder, unspecified; F41.0 Panic disorder [episodic paroxysmal anxiety]; F43.10 Post-traumatic stress disorder, unspecified; Z79.899 Other long term (current) drug therapy; Z87.891 Personal history of nicotine dependence
CPT/HCPCS: 93005; 93010; 99284-25

== ENCOUNTER 2023-04-10 02:56 | Emergency (ER) | payer OTHER ==
[~2023-04-10] VITALS: Ht 180.3 cm; Wt 72.6 kg
[2023-04-10 03:26] LABS: BASOPHILS ABSOLUTE AUTO 0.05 K/mm3 (0.00-0.23); BASOPHILS PERCENT AUTO 1 % (0-2); EOSINOPHILS ABSOLUTE AUTO 0.52 K/mm3 (0.00-0.68); EOSINOPHILS PERCENT AUTO 7 % (0-6); Hematocrit 45.3 % (37.0-53.0); Hemoglobin 15.1 g/dL (13.5-17.5); IMMATURE GRAN ABSOLUTE AUTO 0.01 K/mm3 (0.00-0.10); IMMATURE GRAN PERCENT AUTO 0 % (0-1); LYMPHOCYTES ABSOLUTE AUTO 3.26 K/mm3 (0.84-5.20); LYMPHOCYTES PERCENT AUTO 45 % (21-46); MONOCYTES ABSOLUTE AUTO 0.73 K/mm3 (0.16-1.47); MONOCYTES PERCENT AUTO 10 % (4-13); Mean Corpuscular HGB 32.1 pg (26.0-34.0); Mean Corpuscular HGB Conc 33.3 g/dL (31.5-36.5); Mean Corpuscular Volume 96 fL (80-100); Mean Platelet Volume 10.5 fL (9.1-12.4); NEUTROPHILS ABSOLUTE AUTO 2.69 K/mm3 (1.96-9.15); NEUTROPHILS PERCENT AUTO 37 % (41-73); Platelet Count 244 K/mm3 (150-400); RDW Coefficient Variation 13.4 % (11.7-14.2); RDW Standard Deviation 47.8 fL (35.1-46.3); Red Blood Cell Count 4.71 M/mm3 (4.30-5.90); White Blood Cell Count 7.26 K/mm3 (4.00-11.30)
[2023-04-10 03:43] LABS: Albumin, Blood 3.9 g/dL (3.4-5.0); Albumin/Globulin Ratio 1.1 (0.8-1.8); Bilirubin, Total 0.4 mg/dL (0.1-1.0); Bun/Creatinine Ratio 13.3 (12.0-20.0); Calcium, Blood 8.7 mg/dL (8.5-10.1); Creatinine, Blood 0.83 mg/dL (0.60-1.20); Globulin, Blood 3.7 g/dL (2.2-4.0); Potassium, Blood 3.9 mmol/L (3.5-5.5); Total Protein, Blood 7.6 g/dL (6.4-8.2)
[2023-04-10 06:16] VITALS: BP 108/87
== END 2023-04-10 06:16 | disposition home or self-care (01) ==
LOC: ER 02:56
PROVIDERS: Student in an Organized Health Care Education/Training Program
DX: R07.2 Precordial pain (principal); Z79.899 Other long term (current) drug therapy; F43.10 Post-traumatic stress disorder, unspecified; Z87.891 Personal history of nicotine dependence
CPT/HCPCS: 71046; 80053; 84484; 85025; 93005; 93010; 99285-25

== ENCOUNTER 2023-04-16 22:46 | Emergency (ER) | payer OTHER ==
[~2023-04-16] VITALS: Ht 180.3 cm; Wt 81.7 kg
[2023-04-16 23:26] LABS: BASOPHILS ABSOLUTE AUTO 0.03 K/mm3 (0.00-0.23); BASOPHILS PERCENT AUTO 0 % (0-2); EOSINOPHILS ABSOLUTE AUTO 0.35 K/mm3 (0.00-0.68); EOSINOPHILS PERCENT AUTO 5 % (0-6); Hematocrit 41.3 % (37.0-53.0); Hemoglobin 14.7 g/dL (13.5-17.5); IMMATURE GRAN ABSOLUTE AUTO 0.02 K/mm3 (0.00-0.10); IMMATURE GRAN PERCENT AUTO 0 % (0-1); LYMPHOCYTES ABSOLUTE AUTO 2.63 K/mm3 (0.84-5.20); LYMPHOCYTES PERCENT AUTO 39 % (21-46); MONOCYTES PERCENT AUTO 7 % (4-13); Mean Corpuscular HGB 31.3 pg (26.0-34.0); Mean Corpuscular HGB Conc 35.6 g/dL (31.5-36.5); Mean Corpuscular Volume 88 fL (80-100); Mean Platelet Volume 10.5 fL (9.1-12.4); NEUTROPHILS PERCENT AUTO 48 % (41-73); Platelet Count 243 K/mm3 (150-400); RDW Coefficient Variation 12.6 % (11.7-14.2); RDW Standard Deviation 40.9 fL (35.1-46.3); White Blood Cell Count 6.83 K/mm3 (4.00-11.30)
[2023-04-16 23:44] LABS: Albumin, Blood 4.2 g/dL (3.4-5.0); Albumin/Globulin Ratio 1.2 (0.8-1.8); Bilirubin, Total 0.4 mg/dL (0.1-1.0); Bun/Creatinine Ratio 16.7 (12.0-20.0); Calcium, Blood 9.3 mg/dL (8.5-10.1); Creatinine, Blood 1.08 mg/dL (0.60-1.20); Globulin, Blood 3.6 g/dL (2.2-4.0); Total Protein, Blood 7.8 g/dL (6.4-8.2)
[2023-04-17] VITALS: BP 107/74
[2023-04-17] MEDS ORDERED: HYDHCL25 PO (00:04)
== END 2023-04-17 00:10 | disposition home or self-care (01) ==
LOC: ER 22:46
PROVIDERS: Emergency Medicine
DX: F41.9 Anxiety disorder, unspecified (principal); F43.10 Post-traumatic stress disorder, unspecified; Z87.891 Personal history of nicotine dependence
CPT/HCPCS: 71045; 80053; 84484; 85025; 93005; 93010

== ENCOUNTER 2024-02-24 18:26 | Emergency (ER) | payer OTHER ==
[~2024-02-24] VITALS: Ht 180.3 cm; Wt 74.8 kg
[~2024-02-24 18:26] MED LIST changes: +HYDHCL25 PO
[2024-02-24 18:29] VITALS: BP 138/80
[2024-02-24] MEDS ORDERED: Inderal 20 mg T20 MG PO (18:35)
[2024-02-24] MEDS ORDERED: Propranolol HCL 20 MG TAB PO ONE (18:40)
[2024-02-24] MEDS ORDERED: BUPRENORPHIN-N1 EAC5 SL (18:41)
== END 2024-02-24 19:00 | disposition home or self-care (01) ==
LOC: ER 18:26
DX: Z76.0 Encounter for issue of repeat prescription (principal); Z79.899 Other long term (current) drug therapy; F43.10 Post-traumatic stress disorder, unspecified; Z87.891 Personal history of nicotine dependence
CPT/HCPCS: 99281; A9270

== ENCOUNTER 2024-06-09 19:38 | Emergency (ER) | payer OTHER ==
[~2024-06-09] VITALS: Ht 180.3 cm; Wt 74.8 kg
[~2024-06-09 19:38] MED LIST changes: +BUPRENORPHIN-N1 EAC5 SL; +Inderal 20 mg T20 MG PO
[2024-06-09 19:52] VITALS: BP 132/108
[2024-06-09] MEDS ORDERED: Inderal 20 mg T20 MG PO (19:58)
[2024-06-09] MEDS ORDERED: Propranolol HCL 20 MG TAB PO ONE (20:00)
== END 2024-06-09 20:08 | disposition home or self-care (01) ==
LOC: ER 19:38
DX: Z76.0 Encounter for issue of repeat prescription (principal); I47.10 Supraventricular tachycardia, unspecified; Z79.899 Other long term (current) drug therapy; Z87.891 Personal history of nicotine dependence
CPT/HCPCS: 99281; A9270

== ENCOUNTER 2024-08-08 17:10 | Emergency (ER) | payer OTHER ==
[~2024-08-08] VITALS: Ht 177.8 cm; Wt 77.1 kg
[2024-08-08 17:21] VITALS: BP 137/99
== END 2024-08-08 17:43 | disposition home or self-care (01) ==
LOC: ER 17:10
DX: R00.0 Tachycardia, unspecified (principal); F43.10 Post-traumatic stress disorder, unspecified; Z87.891 Personal history of nicotine dependence; Z79.899 Other long term (current) drug therapy
CPT/HCPCS: 93005; 93010; 99285-25

== ENCOUNTER 2024-08-09 23:10 | Emergency (ER) | payer OTHER ==
[~2024-08-09] VITALS: Ht 180.3 cm; Wt 81.7 kg
[2024-08-09] MEDS ORDERED: NS 1,000 ML IV SCH (23:20)
[2024-08-09 23:25] LABS: BASOPHILS ABSOLUTE AUTO 0.05 K/mm3 (0.00-0.23); BASOPHILS PERCENT AUTO 1 % (0-2); EOSINOPHILS ABSOLUTE AUTO 0.39 K/mm3 (0.00-0.68); EOSINOPHILS PERCENT AUTO 6 % (0-6); Hematocrit 38.3 % (37.0-53.0); Hemoglobin 13.7 g/dL (13.5-17.5); IMMATURE GRAN ABSOLUTE AUTO 0.01 K/mm3 (0.00-0.10); IMMATURE GRAN PERCENT AUTO 0 % (0-1); LYMPHOCYTES ABSOLUTE AUTO 2.62 K/mm3 (0.84-5.20); LYMPHOCYTES PERCENT AUTO 41 % (21-46); MONOCYTES ABSOLUTE AUTO 0.61 K/mm3 (0.16-1.47); MONOCYTES PERCENT AUTO 10 % (4-13); Mean Corpuscular HGB 31.3 pg (26.0-34.0); Mean Corpuscular HGB Conc 35.8 g/dL (31.5-36.5); Mean Corpuscular Volume 87 fL (80-100); Mean Platelet Volume 10.4 fL (9.1-12.4); NEUTROPHILS ABSOLUTE AUTO 2.73 K/mm3 (1.96-9.15); NEUTROPHILS PERCENT AUTO 43 % (41-73); Platelet Count 243 K/mm3 (150-400); RDW Coefficient Variation 12.9 % (11.7-14.2); Red Blood Cell Count 4.38 M/mm3 (4.30-5.90); White Blood Cell Count 6.41 K/mm3 (4.00-11.30)
[2024-08-10 00:01] LABS: Albumin, Blood 3.7 g/dL (3.4-5.0); Albumin/Globulin Ratio 1.1 (0.8-1.8); Bilirubin, Total 0.4 mg/dL (0.1-1.0); Bun/Creatinine Ratio 13.1 (12.0-20.0); Creatinine, Blood 1.07 mg/dL (0.60-1.20); Globulin, Blood 3.4 g/dL (2.2-4.0); Magnesium, Blood 1.9 mg/dL (1.6-2.4); Potassium, Blood 4.1 mmol/L (3.5-5.5); Thyroid Stimulating Hormone 2.15 uIU/mL (0.360-4.800); Total Protein, Blood 7.1 g/dL (6.4-8.2)
[2024-08-10 00:45] VITALS: BP 121/80
== END 2024-08-10 01:20 | disposition home or self-care (01) ==
LOC: ER 23:10
PROVIDERS: Student in an Organized Health Care Education/Training Program
DX: R00.2 Palpitations (principal); R07.89 Other chest pain; F43.10 Post-traumatic stress disorder, unspecified; Z87.891 Personal history of nicotine dependence; Z79.899 Other long term (current) drug therapy
CPT/HCPCS: 71046; 80053; 83735; 84443; 84484; 85025; 93005; 93010; 99285-25; J7030

== ENCOUNTER 2024-08-14 20:07 | Emergency (ER) | payer OTHER ==
[~2024-08-14] VITALS: Ht 180.3 cm; Wt 79.4 kg
[2024-08-14] MEDS ORDERED: Inderal60 MG PO (21:10)
[2024-08-14 21:18] VITALS: BP 118/70
== END 2024-08-14 21:18 | disposition home or self-care (01) ==
LOC: ER 20:07
DX: R00.2 Palpitations (principal); Z87.891 Personal history of nicotine dependence; F43.10 Post-traumatic stress disorder, unspecified; Z79.899 Other long term (current) drug therapy
CPT/HCPCS: 93005; 93010; 99284-25

== ENCOUNTER 2025-01-11 19:16 | Emergency (ER) | payer OTHER ==
[~2025-01-11] VITALS: Ht 180.3 cm; Wt 81.7 kg
[~2025-01-11 19:16] MED LIST changes: +Inderal60 MG PO
[2025-01-11 20:33] LABS: BASOPHILS ABSOLUTE AUTO 0.02 K/mm3 (0.00-0.23); BASOPHILS PERCENT AUTO 0 % (0-2); EOSINOPHILS PERCENT AUTO 3 % (0-6); Hematocrit 41.4 % (37.0-53.0); Hemoglobin 15.4 g/dL (13.5-17.5); IMMATURE GRAN ABSOLUTE AUTO 0.04 K/mm3 (0.00-0.10); IMMATURE GRAN PERCENT AUTO 0 % (0-1); LYMPHOCYTES ABSOLUTE AUTO 0.74 K/mm3 (0.84-5.20); LYMPHOCYTES PERCENT AUTO 7 % (21-46); MONOCYTES ABSOLUTE AUTO 0.73 K/mm3 (0.16-1.47); MONOCYTES PERCENT AUTO 7 % (4-13); Mean Corpuscular HGB 32.2 pg (26.0-34.0); Mean Corpuscular HGB Conc 37.2 g/dL (31.5-36.5); Mean Corpuscular Volume 87 fL (80-100); Mean Platelet Volume 10.3 fL (9.1-12.4); NEUTROPHILS ABSOLUTE AUTO 8.84 K/mm3 (1.96-9.15); NEUTROPHILS PERCENT AUTO 83 % (41-73); Platelet Count 224 K/mm3 (150-400); RDW Coefficient Variation 12.8 % (11.7-14.2); RDW Standard Deviation 40.2 fL (35.1-46.3); Red Blood Cell Count 4.78 M/mm3 (4.30-5.90); White Blood Cell Count 10.67 K/mm3 (4.00-11.30)
[2025-01-11 20:52] LABS: Albumin, Blood 3.8 g/dL (3.4-5.0); Bilirubin, Total 0.7 mg/dL (0.1-1.0); Bun/Creatinine Ratio 11.5 (12.0-20.0); Calcium, Blood 8.7 mg/dL (8.5-10.1); Creatinine, Blood 1.04 mg/dL (0.60-1.20); Globulin, Blood 3.7 g/dL (2.2-4.0); Potassium, Blood 5.1 mmol/L (3.5-5.5); Total Protein, Blood 7.5 g/dL (6.4-8.2)
[2025-01-11 21:12] LABS: CORONAVIRUS COVID-19 AG Negative (NEGATIVE); INFLUENZA A AG Negative (NEGATIVE); INFLUENZA B AG Negative (NEGATIVE)
[2025-01-11 22:06] LABS: Source, Urine Clean Catch
[2025-01-11 22:21] LABS: Bilirubin, Urine Neg (Neg); Blood, Urine Neg (Neg); Glucose Qualitative, Urine Neg (Neg); Ketones, Urine Neg (Neg); Leukocyte Esterase, Urine Neg (Neg); Nitrite, Urine Neg (Neg); Protein, Urine Neg (Neg); Urobilinogen, Urine NORM (Normal)
[2025-01-11 22:29] LABS: Appearance, Urine Clear (Clear); Color, Urine Pale Yellow (P-Yellow)
[2025-01-11] MEDS ORDERED: ONDA4ODT MM (23:08)
[2025-01-11] MEDS ORDERED: MAGCIT300 PO (23:08)
[2025-01-11 23:19] VITALS: BP 120/83
== END 2025-01-11 23:19 | disposition home or self-care (01) ==
LOC: ER 19:16
PROVIDERS: Student in an Organized Health Care Education/Training Program
DX: R10.9 Unspecified abdominal pain (principal); F43.10 Post-traumatic stress disorder, unspecified; Z79.899 Other long term (current) drug therapy; Z87.891 Personal history of nicotine dependence
CPT/HCPCS: 74177; 80053; 81003; 83690; 85025; 87428-QW; Q9967

== ENCOUNTER 2025-05-29 16:01 | Emergency (ER) | payer OTHER ==
[~2025-05-29] VITALS: Ht 180.3 cm; Wt 76.7 kg
[~2025-05-29 16:01] MED LIST changes: +AMOCLA875 PO
[2025-05-29 17:09] LABS: BASOPHILS ABSOLUTE AUTO 0.04 K/mm3 (0.00-0.23); BASOPHILS PERCENT AUTO 1 % (0-2); EOSINOPHILS ABSOLUTE AUTO 0.45 K/mm3 (0.00-0.68); EOSINOPHILS PERCENT AUTO 6 % (0-6); Hematocrit 40.3 % (37.0-53.0); Hemoglobin 14.5 g/dL (13.5-17.5); IMMATURE GRAN ABSOLUTE AUTO 0.02 K/mm3 (0.00-0.10); IMMATURE GRAN PERCENT AUTO 0 % (0-1); LYMPHOCYTES ABSOLUTE AUTO 2.40 K/mm3 (0.84-5.20); LYMPHOCYTES PERCENT AUTO 33 % (21-46); MONOCYTES ABSOLUTE AUTO 0.52 K/mm3 (0.16-1.47); MONOCYTES PERCENT AUTO 7 % (4-13); Mean Corpuscular HGB Conc 36.0 g/dL (31.5-36.5); Mean Corpuscular Volume 86 fL (80-100); NEUTROPHILS ABSOLUTE AUTO 3.77 K/mm3 (1.96-9.15); NEUTROPHILS PERCENT AUTO 52 % (41-73); NRBC ABSOLUTE 0.00 K/mm3 (0.00-0.02); NRBC Auto 0.0 /100 WBC (0.0-0.2); Platelet Count 261 K/mm3 (150-400); RDW Coefficient Variation 12.8 % (11.7-14.2); RDW Standard Deviation 39.4 fL (35.1-46.3)
[2025-05-29 17:23] LABS: Alanine Aminotransfer (ALT/SGP 54.0 U/L (12-78); Albumin, Blood 3.9 g/dL (3.4-5.0); Albumin/Globulin Ratio 1.0 (0.8-1.8); Anion Gap 2.0 mmol/L (3-11); Aspartate Aminotrans (AST/SGOT 34.0 U/L (12-37); Bilirubin, Total 0.5 mg/dL (0.1-1.0); Blood Urea Nitrogen 16.0 mg/dL (8-24); CO2, Blood 30.0 mmol/L (21-32); Calcium, Blood 8.9 mg/dL (8.5-10.1); Chloride, Blood 105.0 mmol/L (98-108); Creatinine, Blood 0.99 mg/dL (0.60-1.20); Globulin, Blood 3.8 g/dL (2.2-4.0); Glucose, Blood 118.0 mg/dL (70-99); Potassium, Blood 3.9 mmol/L (3.5-5.5); Sodium, Blood 133.0 mmol/L (136-145); Total Protein, Blood 7.7 g/dL (6.4-8.2)
[2025-05-29 17:56] LABS: Influenza A, PCR NEGATIVE (NEGATIVE); Influenza B, PCR NEGATIVE (NEGATIVE); Resp Syncytial Virus, PCR NEGATIVE (NEGATIVE); SARS-Cov-2 (COVID-19) PCR, MMC NEGATIVE (NEGATIVE)
[2025-05-29 19:16] VITALS: BP 128/87
== END 2025-05-29 19:16 | disposition home or self-care (01) ==
LOC: ER 16:01
PROVIDERS: Physician Assistant
DX: J06.9 Acute upper respiratory infection, unspecified (principal); Z87.891 Personal history of nicotine dependence; Z79.899 Other long term (current) drug therapy
CPT/HCPCS: 71046; 80053; 84484; 85025; 87637; 93005; 93010; 99285-25

== ENCOUNTER 2025-06-06 12:26 | Emergency (ER) | payer OTHER ==
[~2025-06-06] VITALS: Ht 177.8 cm; Wt 74.8 kg
[2025-06-06] MEDS ORDERED: LORA.5 PO (14:27)
[2025-06-06 14:40] VITALS: BP 119/84
== END 2025-06-06 14:41 | disposition home or self-care (01) ==
LOC: ER 12:26
DX: F41.9 Anxiety disorder, unspecified (principal); R00.2 Palpitations; Z56.1 Change of job; Z79.899 Other long term (current) drug therapy; F43.10 Post-traumatic stress disorder, unspecified
CPT/HCPCS: 93005; 93010; 99283-25; A9270

== ENCOUNTER 2025-07-10 16:38 | Emergency (ER) | payer OTHER ==
[~2025-07-10] VITALS: Ht 180.3 cm; Wt 79.4 kg
[~2025-07-10 16:38] MED LIST changes: +LORA.5 PO
[2025-07-10 16:48] VITALS: BP 150/98
[2025-07-10] MEDS ORDERED: DIVALPROEX SOD500 M2 PO ×2 (16:57→16:58)
== END 2025-07-10 16:58 | disposition home or self-care (01) ==
LOC: ER 16:38
DX: Z76.0 Encounter for issue of repeat prescription (principal); F43.10 Post-traumatic stress disorder, unspecified; Z87.891 Personal history of nicotine dependence; Z79.899 Other long term (current) drug therapy
CPT/HCPCS: 99281

== ENCOUNTER 2025-08-23 16:43 | Emergency (ER) | payer OTHER ==
[~2025-08-23] VITALS: Ht 177.8 cm; Wt 79.4 kg
[~2025-08-23 16:43] MED LIST changes: +DIVALPROEX SOD500 M2 PO
[2025-08-23 16:46] VITALS: BP 122/92
[2025-08-23] MEDS ORDERED: Ondansetron HCl 2 MG / ML 2ML Vial IV ONE (16:50)
[2025-08-23] MEDS ORDERED: Ketorolac Tromethamine 15mg Vial IV ONE (16:50)
[2025-08-23 17:16] LABS: BASOPHILS ABSOLUTE AUTO 0.04 K/mm3 (0.00-0.23); BASOPHILS PERCENT AUTO 1 % (0-2); EOSINOPHILS ABSOLUTE AUTO 0.43 K/mm3 (0.00-0.68); EOSINOPHILS PERCENT AUTO 7 % (0-6); Hematocrit 37.3 % (37.0-53.0); Hemoglobin 13.5 g/dL (13.5-17.5); IMMATURE GRAN ABSOLUTE AUTO 0.02 K/mm3 (0.00-0.10); IMMATURE GRAN PERCENT AUTO 0 % (0-1); LYMPHOCYTES ABSOLUTE AUTO 2.86 K/mm3 (0.84-5.20); LYMPHOCYTES PERCENT AUTO 44 % (21-46); MONOCYTES ABSOLUTE AUTO 0.54 K/mm3 (0.16-1.47); MONOCYTES PERCENT AUTO 8 % (4-13); Mean Corpuscular HGB Conc 36.2 g/dL (31.5-36.5); Mean Corpuscular Volume 87 fL (80-100); NEUTROPHILS ABSOLUTE AUTO 2.68 K/mm3 (1.96-9.15); NEUTROPHILS PERCENT AUTO 41 % (41-73); NRBC ABSOLUTE 0.00 K/mm3 (0.00-0.02); NRBC Auto 0.0 /100 WBC (0.0-0.2); Platelet Count 219 K/mm3 (150-400); RDW Coefficient Variation 12.8 % (11.7-14.2); RDW Standard Deviation 41.1 fL (35.1-46.3)
[2025-08-23 18:11] LABS: Alanine Aminotransfer (ALT/SGP 35.0 U/L (12-78); Albumin, Blood 3.6 g/dL (3.4-5.0); Albumin/Globulin Ratio 1.1 (0.8-1.8); Anion Gap 12.0 mmol/L (3-11); Aspartate Aminotrans (AST/SGOT 18.0 U/L (12-37); Bilirubin, Total 0.3 mg/dL (0.1-1.0); Blood Urea Nitrogen 10.0 mg/dL (8-24); CO2, Blood 22.0 mmol/L (21-32); Calcium, Blood 8.2 mg/dL (8.5-10.1); Chloride, Blood 109.0 mmol/L (98-108); Creatinine, Blood 0.83 mg/dL (0.60-1.20); Globulin, Blood 3.2 g/dL (2.2-4.0); Glucose, Blood 103.0 mg/dL (70-99); Potassium, Blood 4.0 mmol/L (3.5-5.5); Sodium, Blood 139.0 mmol/L (136-145); Total Protein, Blood 6.8 g/dL (6.4-8.2)
[2025-08-23 19:43] LABS: Source, Urine Clean Catch
[2025-08-23 19:46] LABS: Bilirubin, Urine Neg (Neg); Glucose Qualitative, Urine Neg (Neg); Ketones, Urine Neg (Neg); Leukocyte Esterase, Urine Neg (Neg); Protein, Urine Neg (Neg); Specific Gravity, Urine 1.010 (1.003-1.022); Urobilinogen, Urine NORM (Normal)
[2025-08-23 19:51] LABS: Color, Urine Pale Yellow (P-Yellow)
== END 2025-08-23 21:06 | disposition home or self-care (01) ==
LOC: ER 16:43
PROVIDERS: Student in an Organized Health Care Education/Training Program
DX: M54.50 Low back pain, unspecified (principal); E87.8 Other disorders of electrolyte and fluid balance, not elsewhere classified; Z79.899 Other long term (current) drug therapy; Z79.2 Long term (current) use of antibiotics
CPT/HCPCS: 74177; 80053; 81003; 83690; 85025; 96374-59; 99284-25; J1885; Q9967

== ENCOUNTER 2025-09-03 15:50 | Emergency (ER) | payer OTHER ==
[~2025-09-03] VITALS: Ht 180.3 cm; Wt 77.1 kg
[2025-09-03 16:18] LABS: BASOPHILS ABSOLUTE AUTO 0.04 K/mm3 (0.00-0.23); BASOPHILS PERCENT AUTO 1 % (0-2); EOSINOPHILS ABSOLUTE AUTO 0.54 K/mm3 (0.00-0.68); EOSINOPHILS PERCENT AUTO 7 % (0-6); Hematocrit 37.4 % (37.0-53.0); Hemoglobin 13.6 g/dL (13.5-17.5); IMMATURE GRAN ABSOLUTE AUTO 0.01 K/mm3 (0.00-0.10); IMMATURE GRAN PERCENT AUTO 0 % (0-1); LYMPHOCYTES ABSOLUTE AUTO 3.17 K/mm3 (0.84-5.20); LYMPHOCYTES PERCENT AUTO 44 % (21-46); MONOCYTES ABSOLUTE AUTO 0.61 K/mm3 (0.16-1.47); MONOCYTES PERCENT AUTO 8 % (4-13); Mean Corpuscular HGB Conc 36.4 g/dL (31.5-36.5); Mean Corpuscular Volume 86 fL (80-100); NEUTROPHILS ABSOLUTE AUTO 2.88 K/mm3 (1.96-9.15); NEUTROPHILS PERCENT AUTO 40 % (41-73); NRBC ABSOLUTE 0.00 K/mm3 (0.00-0.02); NRBC Auto 0.0 /100 WBC (0.0-0.2); Platelet Count 217 K/mm3 (150-400); RDW Coefficient Variation 12.7 % (11.7-14.2); RDW Standard Deviation 40.0 fL (35.1-46.3)
[2025-09-03 16:20] VITALS: BP 117/88
[2025-09-03 16:47] LABS: Alanine Aminotransfer (ALT/SGP 44.0 U/L (12-78); Albumin, Blood 4.0 g/dL (3.4-5.0); Albumin/Globulin Ratio 1.1 (0.8-1.8); Anion Gap 7.0 mmol/L (3-11); Aspartate Aminotrans (AST/SGOT 31.0 U/L (12-37); Bilirubin, Total 0.5 mg/dL (0.1-1.0); Blood Urea Nitrogen 11.0 mg/dL (8-24); CO2, Blood 30.0 mmol/L (21-32); Calcium, Blood 8.8 mg/dL (8.5-10.1); Chloride, Blood 103.0 mmol/L (98-108); Creatinine, Blood 0.9 mg/dL (0.60-1.20); Globulin, Blood 3.6 g/dL (2.2-4.0); Glucose, Blood 98.0 mg/dL (70-99); Potassium, Blood 3.7 mmol/L (3.5-5.5); Sodium, Blood 136.0 mmol/L (136-145); Total Protein, Blood 7.6 g/dL (6.4-8.2)
== END 2025-09-03 20:09 | disposition home or self-care (01) ==
LOC: ER 15:50
PROVIDERS: Student in an Organized Health Care Education/Training Program
DX: R07.89 Other chest pain (principal); Z87.891 Personal history of nicotine dependence; Z79.899 Other long term (current) drug therapy
CPT/HCPCS: 71046; 80053; 84484; 85025; 93005; 93010; 99285-25